=== PATIENT | female | born 1970 | race Caucasian/White ===

== ENCOUNTER 2018-09-12 14:05 | Inpatient (IN) | payer OTHER ==
[~2018-09-12] VITALS: Ht 162.6 cm; Wt 151.5 kg
--- OUTSIDE RECORDS SUMMARY | 2018-09-12 14:08 | XMS REPORT ---
Author Author [facility] Address Unknown Phone Unavailable Care Team Providers Care Rig Superintendent Name Role Phone Gilson AVILA Unavailable Unavailable Problems This patient has no known problems. Allergies, Adverse Reactions, Alerts This patient has no known allergies or adverse reactions. Medications This patient has no known medications. Results Test Description Test Time Test Comments Text Results Atomic Results Result Comments CT ABDOMEN/PELVIS W [place] [address] Patient Name: EMILY NASCIMENTO MR #: [id number] : 1970 Age/Sex: 47/F Req #: [id number] Adm Physician: Ordered by: CLAUDIO AVILA MD Report #: [id number] Location: ER Room/Bed: Procedure: [id number] CT/CT ABDOMEN/PELVIS W Exam Date: Exam Time: REPORT STATUS: Signed PROCEDURE: CT ABDOMEN AND PELVIS WITH CONTRAST TECHNIQUE: The abdomen and pelvis were scanned utilizing a multidetector helical scanner from the diaphragm to the lesser trochanter after the IV administration of 100 cc of Isovue 370 and the oral administration of water. Coronal and sagittal multiplanar reformations were obtained. COMPARISON: [facility], CT, CT ABDOMEN T PELVIS W/WO CONTRAST, 08/04/2007, 19:07. INDICATIONS: UTI, RIGHT SIDE ABDOMEN PAIN. FINDINGS: LOWER THORAX: Unremarkable. HEPATOBILIARY: No focal hepatic lesions. No biliary ductal dilatation. Cholecystectomy clips. SPLEEN: Stable mild splenomegaly, measuring 14 cm in AP diameter PANCREAS: No focal masses or ductal dilatation. ADRENALS: No adrenal nodules. KIDNEYS/URETERS: No hydronephrosis, stones, or solid mass lesions. PELVIC ORGANS/BLADDER: Bladder is unremarkable. No focal lesions. No surrounding inflammatory changes. Uterus is absent. No adnexal masses. PERITONEUM / RETROPERITONEUM: No free air or fluid. LYMPH NODES: No lymphadenopathy. VESSELS: Minimal atherosclerotic calcification of the distal abdominal aorta. GI TRACT: No bowel dilation or evidence of obstruction. The appendix is well identified and normal in caliber. No pericolonic inflammatory changes. A single diverticulum is noted in the proximal sigmoid colon (series 2, image 77 and coronal image 57), without diverticulitis. BONES AND SOFT TISSUES: Degenerative disc changes, predominantly at L4-L5. Soft tissues are grossly unremarkable. IMPRESSION: 1. no acute abdominopelvic abnormalities. Specifically, no abnormal findings in the right abdomen to explain the patient's pain. 2. Stable mild splenomegaly. Sue Norman M.D. Dictated by: Sue Norman M.D. on 05/16/2017 at 15:16 Electronically approved by: Sue Norman M.D. on 05/16/2017 at 15:16 Dictated By: SUE NORMAN MD [id number] Transcribed By: CJ on 05/16/17 1516 COPY TO: CLAUDIO AVILA MD
[2018-09-12 15:25] LABS: BASOPHILS % 0.2 % (0.0-1.0); EOSINOPHILS % 0.1 % (0.0-6.0); HEMATOCRIT 31.7 % (34.2-44.1); HEMOGLOBIN 10.5 g/dL (12.0-16.0); LYMPHOCYTES # (AUTO) 0.7 (1.0-3.2); LYMPHOCYTES % 7.7 % (18.0-39.1); MEAN CORPUSCULAR HEMOGLOBIN 29.6 pg (28-32); MEAN CORPUSCULAR HGB CONC 33.1 g/dL (31-35); MEAN CORPUSCULAR VOLUME 89.3 fL (81-99); MONOCYTES # (AUTO) 0.5 (0.2-0.8); MONOCYTES % 5.3 % (4.4-11.3); NEUTROPHILS # (AUTO) 7.8 (2.1-6.9); NEUTROPHILS % 84.1 % (38.7-80.0); PLATELET COUNT 193 x10e3/uL (140-360); RED BLOOD COUNT 3.55 x10e6/uL (3.6-5.1)
[2018-09-12 15:38] LABS: ALBUMIN 3.2 g/dL (3.5-5.0); ALBUMIN/GLOBULIN RATIO 0.7 (0.8-2.0); ANION GAP 14.6 mmol/L (8-16); CALCIUM 9.8 mg/dL (8.4-10.2); CREATININE, SERUM 0.99 mg/dL (0.57-1.11); POTASSIUM 3.6 mmol/L (3.5-5.1)
--- NOTE | 2018-09-12 15:51 | Diagnostic Imaging Report ---
EXAMINATION: CHEST 2 VIEWS INDICATION: Shortness of breath ^ORDER PLACED BY ^[id number] ^1530 ^Y COMPARISON: None FINDINGS: PA and lateral views TUBES and LINES: None. LUNGS: Lung volumes are low. There is left lower lobe infiltrate. Right lung appears clear PLEURA: Small left pleural effusion. No pneumothorax. HEART AND MEDIASTINUM: The cardiomediastinal silhouette is unremarkable.. BONES AND SOFT TISSUES: There are degenerative changes of the spine. No focal osseous lesions. Soft tissues are unremarkable. UPPER ABDOMEN: No free air under the diaphragm. IMPRESSION: Left lower lobe infiltrate suggestive of pneumonia in the appropriate clinical setting. Signed by: Dr. Chivo Carson MD on 09/12/2018 3:48 PM
[2018-09-12 15:58] LABS: STREPTOCOCCUS GRP A ANTIGEN NEGATIVE (NEGATIVE)
[2018-09-12 16:02] LABS: INFLUENZAE A&B ANTIGEN (RAPID) POSITIVE FLU A (NEGATIVE)
[2018-09-12] MEDS ORDERED: ALBUTEROL SULF 0.083% NEB SOLN 3 ML NEB NEB STA (16:34)
[2018-09-12] MEDS ORDERED: SODIUM CHLORIDE 0.9% 1000ML 1,000 ML IV STA (16:35)
[2018-09-12] MEDS ORDERED: IPRATROPIUM BROMIDE 0.02% 2.5 ML NEB NEB ONE (16:45)
[2018-09-12 16:47] LABS: INR 1.01; PROTHROMBIN TIME 14.2 seconds (11.9-14.5)
[2018-09-12 16:48] LABS: PARTIAL THROMBOPLASTIN TIME 49.5 seconds (23.8-35.5)
[2018-09-12] MEDS: LEVOFLOXACIN 750MG/D5W 150ML 150 ML IV SCH (17:00)
[2018-09-12 17:01] LABS: CREATINE KINASE MB 0.5 ng/mL (0-5.0)
--- NOTE | 2018-09-12 17:30 | NUR ---
URINE SPECIMEN NEEDED, PT AWARE AND UNABLE TO VOID AT THIS TIME. IVF'S INFUSING ORDERED. PT INSTRUCTED TO CALL FOR ANY NEEDS, ASSISTANCE.
[2018-09-12] MEDS: SODIUM CHLORIDE 0.9% 1000ML 1,000 ML IV SCH (17:45)
[2018-09-12] MEDS: OSELTAMIVIR PHOSPHATE 75 MG CAP PO SCH (17:45)
--- NOTE | 2018-09-12 18:25 | NUR ---
PT MEDICATED FOR FEVER ORDERED. PT AWARE OF ADMISSION TO HOSPITAL, PENDING ROOM ASSIGNMENT AT THIS TIME.
[2018-09-12] MEDS ORDERED: HYDROMORPHONE 2MG/ML 2 MG/ML ML IV ONE (18:30)
[2018-09-12] MEDS ORDERED: KETOROLAC TROMETHAMINE 30 MG/ML VIAL IV ONE (18:30)
[2018-09-12] MEDS ORDERED: ALBUTEROL SULF 0.083% NEB SOLN 3 ML NEB NEB SCH (19:00)
[2018-09-12] MEDS ORDERED: IPRATROPIUM BROMIDE 0.02% 2.5 ML NEB NEB SCH (19:00)
--- NOTE | 2018-09-12 19:21 | NUR ---
BESIDE REPORT GIVEN TO MELANIA GONGORA AIR DIRECTOR NURSE. PT AWARE ROOM ASSIGNMENT STILL PENDING AT THIS TIME.
[2018-09-12] MEDS: ALBUTEROL/IPRATROPIUM 3 ML NEB INH SCH ×2 (20:10→23:35)
--- NOTE | 2018-09-12 20:30 | NUR ---
report received from Emergency Room Nurse.
--- NOTE | 2018-09-12 21:40 | NUR ---
Patient came from Emergency Room via stretcher. Alert and Oriented. Assessment done.
[2018-09-12 22:00] VITALS: BP 158/77
--- NOTE | 2018-09-12 22:57 | NUR ---
Patient latest temp 100.[address] Desmond wolf no answer.
[2018-09-12 23:21] LABS: BILIRUBIN,URINE 1+ (NEGATIVE); CLARITY,URINE CLOUDY (CLEAR); COLOR,URINE YELLOW (YELLOW); KETONES,URINE 1+ (NEGATIVE); LEUKOCYTE ESTERASE ,URINE NEGATIVE (NEGATIVE); NITRITE,URINE NEGATIVE (NEGATIVE); PROTEIN,URINE DIPSTICK 2+ (NEGATIVE); URINE UROBILINOGEN 0.2 mg/dL (0.2 - 1)
[2018-09-12 23:22] LABS: BACTERIA,URINE MANY /HPF; EPITHELIAL CELLS,URINE FEW /LPF; MUCUS,URINE MODERATE (RARE)
[2018-09-13] VITALS (8 sets, daily range): BP systolic 126–139; BP diastolic 62–78
[2018-09-13] MEDS: SODIUM CHLORIDE 0.9% 1000ML 1,000 ML IV SCH ×2 (00:01→10:33)
--- NOTE | 2018-09-13 01:29 | NUR ---
Paged and talked to MD. New order received.
[2018-09-13] MEDS ORDERED: ACETAMINOPHEN 325 MG TAB PO PRN (01:30)
[2018-09-13] MEDS: IBUPROFEN 200 MG TAB PO PRN ×3 (01:52→21:53)
[2018-09-13] MEDS: ALBUTEROL/IPRATROPIUM 3 ML NEB INH SCH ×6 (02:59→23:12)
[2018-09-13 05:37] LABS: BASOPHILS % 0.2 % (0.0-1.0); HEMATOCRIT 28.4 % (34.2-44.1); HEMOGLOBIN 9.3 g/dL (12.0-16.0); LYMPHOCYTES # (AUTO) 0.8 (1.0-3.2); LYMPHOCYTES % 9.4 % (18.0-39.1); MEAN CORPUSCULAR HEMOGLOBIN 29.2 pg (28-32); MEAN CORPUSCULAR HGB CONC 32.7 g/dL (31-35); MEAN CORPUSCULAR VOLUME 89.3 fL (81-99); MONOCYTES # (AUTO) 0.5 (0.2-0.8); MONOCYTES % 6.2 % (4.4-11.3); NEUTROPHILS # (AUTO) 6.7 (2.1-6.9); NEUTROPHILS % 83.5 % (38.7-80.0); PLATELET COUNT 182 x10e3/uL (140-360); RED BLOOD COUNT 3.18 x10e6/uL (3.6-5.1); RED CELL DISTRIBUTION WIDTH 13.1 % (11.7-14.4)
[2018-09-13 06:09] LABS: ALANINE AMINOTRANSFERASE 11 IU/L (0-55); ALBUMIN 2.6 g/dL (3.5-5.0); ALBUMIN/GLOBULIN RATIO 0.7 (0.8-2.0); ALKALINE PHOSPHATASE 57 IU/L (40-150); ANION GAP 15.3 mmol/L (8-16); BLOOD UREA NITROGEN 14 mg/dL (7-26); BUN/CREATININE RATIO 17 (6-25); CALCIUM 8.6 mg/dL (8.4-10.2); CARBON DIOXIDE 19 mmol/L (22-29); CHLORIDE 99 mmol/L (98-107); CREATININE, SERUM 0.81 mg/dL (0.57-1.11); EST GLOMERULAR FILTRATION RATE > 60 ML/MIN (60-); GLUCOSE 189 mg/dL (74-118); POTASSIUM 3.3 mmol/L (3.5-5.1); SODIUM 130 mmol/L (136-145)
[2018-09-13 06:27] LABS: CREATINE KINASE MB 0.3 ng/mL (0-5.0)
--- NOTE | 2018-09-13 07:33 | NUR ---
Patient resting in bed, denies any pain or SOB, not in any distress, she Refused Bed Alarm, explained and educated her about safety, she said its OK for me, call light in reach, encouraged her to use for assistance
[2018-09-13] MEDS: LEVOFLOXACIN 750MG/D5W 150ML 150 ML IV SCH (08:32)
[2018-09-13] MEDS: OSELTAMIVIR PHOSPHATE 75 MG CAP PO SCH ×2 (08:33→17:30)
[2018-09-13] MEDS ORDERED: MOBIC15 MG PO (09:42)
[2018-09-13] MEDS ORDERED: BENADRYL25 M1 PO (09:42)
[2018-09-13] MEDS ORDERED: CYCLOBENZAPRINE10 MG PO (09:42)
[2018-09-13] MEDS ORDERED: CLONAZEPAM1 MG PO (09:42)
[2018-09-13] MEDS ORDERED: LANTUS 3ML100 UNITS/ SC (09:42)
[2018-09-13] MEDS ORDERED: LISINOPRIL10 MG PO (09:42)
[2018-09-13] MEDS ORDERED: SINGULAIR10 MG PO (09:42)
[2018-09-13] MEDS ORDERED: ATORVASTATIN CA20 MG PO (09:42)
[2018-09-13] MEDS ORDERED: METFORMIN HCL500 MG PO (09:42)
[2018-09-13] MEDS ORDERED: PRAZOSIN HCL1 MG PO (09:42)
[2018-09-13] MEDS ORDERED: SPIRONOLACTONE50 MG PO (09:42)
[2018-09-13] MEDS ORDERED: OMEPRAZOLE40 MG PO (09:42)
[2018-09-13] MEDS ORDERED: CYMBALTA20 MG PO (09:42)
--- NOTE | 2018-09-13 10:03 | NUR ---
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
[2018-09-13] MEDS ORDERED: POTASSIUM CHLORIDE 20 MEQ TAB CR PO ONE (13:30)
[2018-09-13 13:37] LABS: CREATINE KINASE MB 0.5 ng/mL (0-5.0)
[2018-09-13] MEDS: CYCLOBENZAPRINE HCL 10 MG TAB PO SCH ×2 (14:25→20:58)
[2018-09-13] MEDS: GUAIFENESIN 200 MG/10 ML UDC PO PRN ×2 (14:45→23:01)
--- NOTE | 2018-09-13 16:17 | NUR ---
Blood culture result paged Dr Desmond Stinson, awaiting call back for new orders, patient is on IV fluids, PRN Mortin po given for elevated temp, not in any distress, keep monitoring
--- NOTE | 2018-09-13 17:24 | NUR ---
Notified Dr Desmond Stinson regarding blood culture result, new orders recvd.
[2018-09-13] MEDS: CLONAZEPAM 1 MG TAB PO SCH (17:30)
[2018-09-13] MEDS: METFORMIN HCL 500 MG TAB PO SCH (17:30)
[2018-09-13] MEDS: VANCOMYCIN 1GM/NS 250 ML 250 ML IV SCH (18:00)
--- NOTE | 2018-09-13 19:18 | NUR ---
Received Patient laying on the bed. Alert and responsive.
[2018-09-13] MEDS: INSULIN DETEMIR 100 UNIT/ML PEN SQ SCH (20:57)
[2018-09-13] MEDS: ATORVASTATIN 20 MG TAB PO SCH (20:58)
[2018-09-13] MEDS: DIPHENHYDRAMINE HCL 25 MG CAP PO SCH (20:58)
[2018-09-13] MEDS: PRAZOSIN HCL 1 MG CAP PO SCH (20:58)
--- NOTE | 2018-09-13 21:50 | NUR ---
Patient complaint of nausea. Paged Dr. Stinson no answer. Patient was assisted to comfortable position.
[2018-09-14] VITALS (9 sets, daily range): BP systolic 102–137; BP diastolic 59–69
--- NOTE | 2018-09-14 00:12 | NUR ---
Patient relieved from nausea. IV reinserted.
[2018-09-14] MEDS: SODIUM CHLORIDE 0.9% 1000ML 1,000 ML IV SCH ×3 (01:06→16:30)
[2018-09-14] MEDS: ALBUTEROL/IPRATROPIUM 3 ML NEB INH SCH ×6 (02:58→23:10)
[2018-09-14] MEDS: VANCOMYCIN 1GM/NS 250 ML 250 ML IV SCH ×2 (05:15→18:18)
[2018-09-14] MEDS: IBUPROFEN 200 MG TAB PO PRN ×3 (07:24→23:57)
--- NOTE | 2018-09-14 07:25 | NUR ---
RECEIVED PATIENT RESTING IN BED. NO ACUTE DISTRESS NOTED. PAIN AT A TOLERABLE LEVEL AT THIS TIME. CALL LIGHT WITHIN REACH. BED IN THE LOWEST POSITION.
--- NOTE | 2018-09-14 07:26 | NUR ---
Report given to oncoming nurse.
[2018-09-14] MEDS: METFORMIN HCL 500 MG TAB PO SCH ×2 (09:37→16:53)
[2018-09-14] MEDS: PANTOPRAZOLE SOD 40 MG TABEC PO SCH (09:37)
[2018-09-14] MEDS: LEVOFLOXACIN 750MG/D5W 150ML 150 ML IV SCH (09:37)
[2018-09-14] MEDS: DULOXETINE HCL 20 MG DELAYED RELEASE PO SCH (09:37)
[2018-09-14] MEDS: CYCLOBENZAPRINE HCL 10 MG TAB PO SCH ×3 (09:38→21:00)
[2018-09-14] MEDS: OSELTAMIVIR PHOSPHATE 75 MG CAP PO SCH ×2 (09:38→16:53)
[2018-09-14] MEDS: MONTELUKAST SODIUM 10 MG TAB PO SCH (09:38)
[2018-09-14] MEDS: LISINOPRIL 20 MG TAB PO SCH (09:38)
[2018-09-14] MEDS: CLONAZEPAM 1 MG TAB PO SCH ×2 (09:38→16:53)
--- NOTE | 2018-09-14 12:00 | NUR ---
CALLED DR. ARROYO'S OFFICE TO NOTIFY HIM OF PATIENT'S BG FOR TODAY BEING ELEVATE. ANSWERING SERVICE WILL PAGE .
[2018-09-14] MEDS ORDERED: DEXTROSE 50% SYRINGE 50 ML IV PRN (12:45)
[2018-09-14] MEDS: INSULIN LISPRO 100 UNIT/1 ML 3ML VIAL SQ SCH ×3 (13:05→21:00)
--- NOTE | 2018-09-14 19:29 | NUR ---
REPORT GIVEN TO ONCOMING NURSE. PATIENT IS RESTING IN BED. NO ACUTE DISTRESS NOTED. CALL LIGHT WITHIN REACH. BED IN THE LOWEST POSITION.
--- NOTE | 2018-09-14 20:00 | NUR ---
PT IN BED, ABD BREATHING NOTICEABLE, VS STABLE, SLIGHT TEMP NOTED, O2 2L NC AT BEDSIDE PRN, TELE WITH CONT PULSE OX ON PT, IV INTACT AND INFUSING, CALL LIGHT IN REACH, NO DISTRESS NOTED,
[2018-09-14] MEDS: DIPHENHYDRAMINE HCL 25 MG CAP PO SCH (21:00)
[2018-09-14] MEDS: PRAZOSIN HCL 1 MG CAP PO SCH (21:00)
[2018-09-14] MEDS: INSULIN DETEMIR 100 UNIT/ML PEN SQ SCH (21:00)
[2018-09-14] MEDS: ATORVASTATIN 20 MG TAB PO SCH (21:00)
[2018-09-15] VITALS (8 sets, daily range): BP systolic 112–157; BP diastolic 51–88
[2018-09-15] MEDS: ALBUTEROL/IPRATROPIUM 3 ML NEB INH SCH ×6 (03:15→23:30)
[2018-09-15] MEDS: VANCOMYCIN 1GM/NS 250 ML 250 ML IV SCH ×2 (06:00→18:00)
--- NOTE | 2018-09-15 06:18 | NUR ---
pt down and back from xray, vs stable, no distress noted, pt in bed with call light in reach
--- NOTE | 2018-09-15 06:27 | Diagnostic Imaging Report ---
CHEST 2 VIEWS, Technique: CHEST 2 VIEWS Comparison: 09/12/2018 Clinical history: Pneumonia DISCUSSION: Stable prominent cardiomediastinal silhouette. Increased left lower hemithorax opacity. Small right pleural effusion. IMPRESSION: Increased left lower hemithorax opacity which may reflect a combination of atelectasis/pneumonia and pleural fluid. Signed by: Dr Betzaida Gonzalez MD on 09/15/2018 6:23 AM
--- NOTE | 2018-09-15 07:12 | NUR ---
RECEIVED PATIENT RESTING IN BED. NO ACUTE DISTRESS NOTED. CALL LIGHT WITHIN REACH. BED IN THE LOWEST POSITION.
--- NOTE | 2018-09-15 08:24 | Consultation ---
DATE OF CONSULTATION: September 14, 2018 PULMONARY CONSULTATION Patient of Dr. Shayne Stinson, Dr. Vidal Cruz. 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 History of rheumatoid arthritis. Patient had received the flu vaccine. was stopped approximately a month ago. ALLERGIES: ALLERGIC TO CLEOCIN, TYLENOL, AND PENICILLIN. HOME MEDICATIONS: In addition to Plaquenil included Mobic, Aldactone, Lipitor, clonazepam, cyclobenzaprine, Benadryl, Cymbalta, insulin, lisinopril, metformin, montelukast, omeprazole, prazosin. 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 VITAL SIGNS: Temperature 100.9, pulse 114, respirations 18, blood pressure 137/60. HEENT: Head: Normocephalic, atraumatic. Eyes: Extraocular movements intact. LUNGS: Rales, left base. HEART: Regular rhythm. ABDOMEN: Nontender. EXTREMITIES: Not edematous. IMPRESSION: Influenza pneumonia. PLAN: Consider reducing antibiotics. Check sputum studies. Coag-negative staph in the blood presumed contaminant. Follow up chest x-ray in a.m., there is a suggestion of pleuritic pain. Thank you for this kind referral. Job#: [id number]
[2018-09-15] MEDS ORDERED: HYDROXYCHLOROQUINE SULFATE 200 MG TAB PO SCH (09:00)
[2018-09-15] MEDS: METFORMIN HCL 500 MG TAB PO SCH ×2 (09:03→17:08)
[2018-09-15] MEDS: LEVOFLOXACIN 750MG/D5W 150ML 150 ML IV SCH (09:03)
[2018-09-15] MEDS: DULOXETINE HCL 20 MG DELAYED RELEASE PO SCH (09:03)
[2018-09-15] MEDS: PANTOPRAZOLE SOD 40 MG TABEC PO SCH (09:03)
[2018-09-15] MEDS: LISINOPRIL 20 MG TAB PO SCH (09:04)
[2018-09-15] MEDS: OSELTAMIVIR PHOSPHATE 75 MG CAP PO SCH ×2 (09:04→17:08)
[2018-09-15] MEDS: CYCLOBENZAPRINE HCL 10 MG TAB PO SCH ×3 (09:04→20:31)
[2018-09-15] MEDS: CLONAZEPAM 1 MG TAB PO SCH ×2 (09:04→17:08)
[2018-09-15] MEDS: MONTELUKAST SODIUM 10 MG TAB PO SCH (09:04)
[2018-09-15] MEDS: PROMETHAZINE/CODEINE 5 ML UDC PO PRN ×2 (09:20→20:30)
[2018-09-15] MEDS: INSULIN LISPRO 100 UNIT/1 ML 3ML VIAL SQ SCH ×4 (09:21→20:20)
[2018-09-15] MEDS: IBUPROFEN 200 MG TAB PO PRN ×2 (12:00→20:30)
--- NOTE | 2018-09-15 18:54 | Diagnostic Imaging Report ---
Exam: Ultrasound of chest Clinical history: Pleural effusion. Technique: Using a curved array transducer, real-time imaging of the bilateral thorax was performed with images saved in sagittal and transverse planes. Discussion: There is no pleural effusion bilaterally. Impression: No pleural effusion. Signed by: Dr. Esme Mancilla M.D. on 09/15/2018 6:51 PM
--- NOTE | 2018-09-15 19:32 | NUR ---
REPORT GIVEN TO ONCOMING NURSE. PATIENT IS RESTING IN BED. NO S/S OF DISTRESS NOTED. CALL LIGHT WITHIN REACH. BED IN THE LOWEST POSITION.
[2018-09-15] MEDS: INSULIN DETEMIR 100 UNIT/ML PEN SQ SCH (20:20)
[2018-09-15] MEDS: SODIUM CHLORIDE 0.9% 1000ML 1,000 ML IV SCH ×2 (20:31→20:32)
[2018-09-15] MEDS: DIPHENHYDRAMINE HCL 25 MG CAP PO SCH (20:31)
[2018-09-15] MEDS: ATORVASTATIN 20 MG TAB PO SCH (20:31)
[2018-09-15] MEDS: PRAZOSIN HCL 1 MG CAP PO SCH (20:32)
[2018-09-16] VITALS: BP 96/65
[2018-09-16] MEDS: ALBUTEROL/IPRATROPIUM 3 ML NEB INH SCH ×6 (03:15→23:10)
[2018-09-16 04:00] VITALS: BP 130/65
[2018-09-16] MEDS: VANCOMYCIN 1GM/NS 250 ML 250 ML IV SCH ×2 (06:37→17:41)
[2018-09-16] MEDS: INSULIN LISPRO 100 UNIT/1 ML 3ML VIAL SQ SCH ×4 (07:30→20:38)
[2018-09-16 08:00] VITALS: BP 130/59
[2018-09-16] MEDS: PROMETHAZINE/CODEINE 5 ML UDC PO PRN ×2 (08:53→20:05)
[2018-09-16] MEDS: DULOXETINE HCL 20 MG DELAYED RELEASE PO SCH (08:59)
[2018-09-16] MEDS: PANTOPRAZOLE SOD 40 MG TABEC PO SCH (08:59)
[2018-09-16] MEDS: METFORMIN HCL 500 MG TAB PO SCH ×2 (08:59→17:41)
[2018-09-16] MEDS: LEVOFLOXACIN 750MG/D5W 150ML 150 ML IV SCH (08:59)
[2018-09-16] MEDS: CLONAZEPAM 1 MG TAB PO SCH ×2 (09:00→17:41)
[2018-09-16] MEDS: OSELTAMIVIR PHOSPHATE 75 MG CAP PO SCH ×2 (09:00→17:41)
[2018-09-16] MEDS: MONTELUKAST SODIUM 10 MG TAB PO SCH (09:00)
[2018-09-16] MEDS: LISINOPRIL 20 MG TAB PO SCH (09:00)
[2018-09-16] MEDS: CYCLOBENZAPRINE HCL 10 MG TAB PO SCH ×3 (09:00→20:37)
--- NOTE | 2018-09-16 11:56 | Diagnostic Imaging Report ---
EXAMINATION: CT scan of the chest without contrast. TECHNIQUE: Spiral CT images of the chest were performed from the lung apices to the level of the adrenal glands without IV or oral contrast material. Coronal and sagittal reformatted images were obtained. Dose reduction techniques were utilized which includes automated exposure control, adjustment of the MAS and/or KVP according to the patient's size and standardized low-dose protocol. DLP: 610.22 mGy-cm COMPARISON: Chest x-ray dated 09/15/2018 CLINICAL HISTORY:Asthma, shortness of breath with chest pain and cough. DISCUSSION: LINES/TUBES: None. LUNGS AND AIRWAYS: Extensive left lower lobe consolidation. PLEURA: Trace left pleural effusion. HEART AND MEDIASTINUM: The thyroid gland is normal. The heart and pericardium are within normal limits. Calcified right paratracheal and hilar granulomas. LYMPH NODES: There is no mediastinal, hilar or axillary lymphadenopathy. ABDOMEN: Clips in the gallbladder fossa. Limited views of the liver and spleen reveal no abnormality. BONES AND SOFT TISSUES: No acute bony abnormalities. Mild degenerative spurring of the spine. IMPRESSION: Left lower lobe consolidation with a trace amount left pleural effusion. Signed by: Dr. Álvaro Barrett DO on 09/16/2018 11:52 AM
[2018-09-16 12:00] VITALS: BP 148/68
[2018-09-16] MEDS: IBUPROFEN 200 MG TAB PO PRN (13:14)
[2018-09-16 16:00] VITALS: BP 137/68
--- NOTE | 2018-09-16 18:00 | NUR ---
Dr. Stinson here to see pt and received orders to remove pt from isolation on 09/17/18.
--- NOTE | 2018-09-16 19:00 | NUR ---
Completed bedside rounds with morning nurse. Pt alert, lying in bed 60 degrees. Denies pain at this time. No acute distress noted. Call denton within reach.
[2018-09-16 20:00] VITALS: BP 110/65
[2018-09-16] MEDS: ATORVASTATIN 20 MG TAB PO SCH (20:37)
[2018-09-16] MEDS: DIPHENHYDRAMINE HCL 25 MG CAP PO SCH (20:37)
[2018-09-16] MEDS: SODIUM CHLORIDE 0.9% 1000ML 1,000 ML IV SCH (20:38)
[2018-09-16] MEDS: PRAZOSIN HCL 1 MG CAP PO SCH (20:38)
[2018-09-16] MEDS: INSULIN DETEMIR 100 UNIT/ML PEN SQ SCH (20:47)
[2018-09-17] VITALS (7 sets, daily range): BP systolic 104–144; BP diastolic 50–88
[2018-09-17] MEDS: ALBUTEROL/IPRATROPIUM 3 ML NEB INH SCH ×6 (02:15→23:32)
[2018-09-17] MEDS: PROMETHAZINE/CODEINE 5 ML UDC PO PRN ×4 (03:04→22:25)
[2018-09-17] MEDS: IBUPROFEN 200 MG TAB PO PRN ×4 (03:04→22:50)
[2018-09-17] MEDS: VANCOMYCIN 1GM/NS 250 ML 250 ML IV SCH (05:40)
[2018-09-17 05:45] LABS: BASOPHILS % 0.4 % (0.0-1.0); EOSINOPHILS # (AUTO) 0.1 (0.0-0.4); EOSINOPHILS % 0.9 % (0.0-6.0); HEMATOCRIT 24.2 % (34.2-44.1); HEMOGLOBIN 7.8 g/dL (12.0-16.0); LYMPHOCYTES # (AUTO) 0.9 (1.0-3.2); LYMPHOCYTES % 9.9 % (18.0-39.1); MEAN CORPUSCULAR HEMOGLOBIN 29.4 pg (28-32); MEAN CORPUSCULAR HGB CONC 32.2 g/dL (31-35); MEAN CORPUSCULAR VOLUME 91.3 fL (81-99); MONOCYTES # (AUTO) 0.6 (0.2-0.8); NEUTROPHILS # (AUTO) 7.2 (2.1-6.9); NEUTROPHILS % 78.3 % (38.7-80.0); PLATELET COUNT 243 x10e3/uL (140-360); RED BLOOD COUNT 2.65 x10e6/uL (3.6-5.1); RED CELL DISTRIBUTION WIDTH 13.3 % (11.7-14.4)
--- NOTE | 2018-09-17 06:00 | NUR ---
Called Dr. Cherie Stinson answering service for call back regarding abnormal lab, Hgb 7.3.
[2018-09-17 06:11] LABS: ANION GAP 12.2 mmol/L (8-16); BLOOD UREA NITROGEN 5 mg/dL (7-26); BUN/CREATININE RATIO 7 (6-25); CALCIUM 8.6 mg/dL (8.4-10.2); CARBON DIOXIDE 21 mmol/L (22-29); CHLORIDE 103 mmol/L (98-107); CREATININE, SERUM 0.73 mg/dL (0.57-1.11); EST GLOMERULAR FILTRATION RATE > 60 ML/MIN (60-); GLUCOSE 134 mg/dL (74-118); POTASSIUM 3.2 mmol/L (3.5-5.1); SODIUM 133 mmol/L (136-145)
[2018-09-17] MEDS: INSULIN LISPRO 100 UNIT/1 ML 3ML VIAL SQ SCH ×5 (08:35→21:00)
[2018-09-17] MEDS: PANTOPRAZOLE SOD 40 MG TABEC PO SCH (08:36)
[2018-09-17] MEDS: METFORMIN HCL 500 MG TAB PO SCH ×2 (08:36→17:16)
[2018-09-17] MEDS: CLONAZEPAM 1 MG TAB PO SCH ×2 (08:36→17:16)
[2018-09-17] MEDS: CYCLOBENZAPRINE HCL 10 MG TAB PO SCH ×3 (08:36→21:00)
[2018-09-17] MEDS: MONTELUKAST SODIUM 10 MG TAB PO SCH (08:36)
[2018-09-17] MEDS: LEVOFLOXACIN 750MG/D5W 150ML 150 ML IV SCH (08:36)
[2018-09-17] MEDS: DULOXETINE HCL 20 MG DELAYED RELEASE PO SCH (08:36)
[2018-09-17] MEDS: OSELTAMIVIR PHOSPHATE 75 MG CAP PO SCH (08:36)
[2018-09-17] MEDS: LISINOPRIL 20 MG TAB PO SCH (09:00)
[2018-09-17 10:25] LABS: EOSINOPHILS % (MANUAL) 1 % (0-7); LYMPHOCYTES % (MANUAL) 15 % (19-48); METAMYELOCYTES % (MANUAL) 1 % (0-0); MONOCYTES % (MANUAL) 5 % (3.4-9.0); NEUTROPHILS % (MANUAL) 78 % (40-74)
[2018-09-17 10:26] LABS: ANISOCYTOSIS SLIGHT; HYPOCHROMASIA SLIGHT; PLATELET ESTIMATE ADEQUATE; PLATELET MORPHOLOGY COMMENT NORMAL; RBC MORPHOLOGY COMMENT NORMAL
--- NOTE | 2018-09-17 11:00 | NUR ---
Dr. Stinson called back and made him aware of abnormal labs. Received orders to consult Dr. Padgett for anemia and type and screen to transfuse 2 units PRBC. Received orders to give KCL 20meq PO x1 dose.
[2018-09-17] MEDS ORDERED: SODIUM CHLORIDE 0.9% 250ML 250 ML IV ONE (11:30)
[2018-09-17] MEDS ORDERED: POTASSIUM CHLORIDE 20 MEQ TAB CR PO NR (11:45)
[2018-09-17] MEDS ORDERED: SODIUM CHLORIDE 0.9% 250ML 250 ML ONE ×2 (16:04→22:44)
--- NOTE | 2018-09-17 16:22 | NUR ---
Nutrition Screen Note RD Recommendation for Physician: -Continue ADA diet as ordered Plan of Care: RD following, monitoring for tolerance and adequacy Nutrition reason for involvement: LOS Primary Diagnose(s): influenza PNA PMH: No H&P in chart Ht: 64in Wt: 333.13lb BMI: 57.2kg/m2 IBW: 130lb RD Assessment: (09/17) Chart reviewed. Labs and meds reviewed. 48yo F, who is admitted for influenza PNA. Visited pt in the room. Pt reports good appetite with ~50-100% recorded PO intake. No GI complains noted. LBM 09/16, loose stool possibly due to meds. Pt denies any chewing or swallowing difficulty. No recent unintentional weight loss reported. Will continue to monitor and follow. Current Diet: ADA diet Malnutrition Evaluation (09/17) The patient does not meet criteria for a specified degree of malnutrition at this time. Will re-evaluate at follow-up as appropriate. Diet Education Needs Assessment: Diet education not indicated. Nutrition Care Level: low Signed: Jayda Rogers, MS, RD, LD
--- NOTE | 2018-09-17 19:05 | NUR ---
Completed bedside rounds with morning nurse and Dr. Padgett. Dr. Padgett explained his upcoming medical plans. Pt alert, lying in bed 60 degrees. No acute distress noted. Call denton within reach.
[2018-09-17] MEDS: PRAZOSIN HCL 1 MG CAP PO SCH (21:00)
[2018-09-17] MEDS: INSULIN DETEMIR 100 UNIT/ML PEN SQ SCH (21:00)
[2018-09-17] MEDS: DIPHENHYDRAMINE HCL 25 MG CAP PO SCH (21:00)
[2018-09-17] MEDS: ATORVASTATIN 20 MG TAB PO SCH (21:00)
[2018-09-18] VITALS (9 sets, daily range): BP systolic 96–144; BP diastolic 52–75
--- NOTE | 2018-09-18 01:36 | NUR ---
Blood transfusion x2 completed. No blood fusion reactions noted. Temp 100.5, fluctuates x2 days in hospital. Pt lying in bed right side quiet with eyes closed.
[2018-09-18] MEDS: ALBUTEROL/IPRATROPIUM 3 ML NEB INH SCH ×6 (03:15→23:00)
[2018-09-18 05:28] LABS: BASOPHILS % 0.3 % (0.0-1.0); EOSINOPHILS # (AUTO) 0.1 (0.0-0.4); EOSINOPHILS % 1.4 % (0.0-6.0); HEMATOCRIT 25.9 % (34.2-44.1); HEMOGLOBIN 8.4 g/dL (12.0-16.0); LYMPHOCYTES % 10.7 % (18.0-39.1); MEAN CORPUSCULAR HEMOGLOBIN 28.8 pg (28-32); MEAN CORPUSCULAR HGB CONC 32.4 g/dL (31-35); MEAN CORPUSCULAR VOLUME 88.7 fL (81-99); MONOCYTES # (AUTO) 0.5 (0.2-0.8); MONOCYTES % 4.8 % (4.4-11.3); NEUTROPHILS # (AUTO) 7.3 (2.1-6.9); NEUTROPHILS % 78.5 % (38.7-80.0); PLATELET COUNT 242 x10e3/uL (140-360); RED BLOOD COUNT 2.92 x10e6/uL (3.6-5.1); RED CELL DISTRIBUTION WIDTH 13.8 % (11.7-14.4)
[2018-09-18] MEDS: VANCOMYCIN 1GM/NS 250 ML 250 ML IV SCH ×2 (06:00→19:21)
[2018-09-18 07:00] LABS: EOSINOPHILS % (MANUAL) 3 % (0-7); LYMPHOCYTES % (MANUAL) 6 % (19-48); MONOCYTES % (MANUAL) 6 % (3.4-9.0); NEUTROPHILS % (MANUAL) 85 % (40-74)
[2018-09-18 07:02] LABS: ANISOCYTOSIS SLIGHT; HYPOCHROMASIA MODERATE; PLATELET ESTIMATE ADEQUATE; PLATELET MORPHOLOGY COMMENT NORMAL; RBC MORPHOLOGY COMMENT NORMAL
--- NOTE | 2018-09-18 07:20 | NUR ---
PATIENT IN BED RESTING WITH NO S/S OF PAIN OR DISCOMFORT. BED IN LOWER POSITION, CALL LIGHT AT REACH.
[2018-09-18] MEDS: INSULIN LISPRO 100 UNIT/1 ML 3ML VIAL SQ SCH ×4 (07:30→20:36)
[2018-09-18] MEDS: METFORMIN HCL 500 MG TAB PO SCH ×2 (08:00→17:39)
[2018-09-18] MEDS: PANTOPRAZOLE SOD 40 MG TABEC PO SCH (08:00)
[2018-09-18] MEDS: PROMETHAZINE/CODEINE 5 ML UDC PO PRN ×2 (08:50→19:21)
[2018-09-18] MEDS: LISINOPRIL 20 MG TAB PO SCH (09:25)
[2018-09-18] MEDS: CYCLOBENZAPRINE HCL 10 MG TAB PO SCH ×3 (09:25→21:00)
[2018-09-18] MEDS: CLONAZEPAM 1 MG TAB PO SCH ×2 (09:25→17:39)
[2018-09-18] MEDS: MONTELUKAST SODIUM 10 MG TAB PO SCH (09:25)
[2018-09-18] MEDS: DULOXETINE HCL 20 MG DELAYED RELEASE PO SCH (09:25)
[2018-09-18] MEDS: LEVOFLOXACIN 750MG/D5W 150ML 150 ML IV SCH (09:25)
--- NOTE | 2018-09-18 11:30 | NUR ---
IN TO SEE PATIENT, NEW ORDER RECEIVED FOR URINE CULTURE. SPECIMEN COLLECTION CUP PROVIDED. PATIENT IN BED WITH CALL LIGHT AT REACH.
[2018-09-18] MEDS ORDERED: FAMOTIDINE 20 MG/2 ML VIAL IV ONE (13:32)
--- NOTE | 2018-09-18 14:45 | NUR ---
PATIENT OFF UNIT FOR A PROCEDURE.
[2018-09-18] MEDS ORDERED: OXYMETAZOLINE HCL 0.05% NAS 1 SPRAY BTL ONE (15:01)
[2018-09-18] MEDS ORDERED: LIDOCAINE HCL 4% 50 ML BTL ONE (15:01)
[2018-09-18] MEDS ORDERED: ACETYLCYSTEINE 200 MG/ML 4ML VIAL ONE (15:01)
[2018-09-18] MEDS ORDERED: LIDOCAINE JELLY 2% 10ML URO-JET ONE (15:01)
[2018-09-18] MEDS ORDERED: MIDAZOLAM HCL 2 MG/2 ML VIAL ONE (15:08)
[2018-09-18] MEDS ORDERED: LIDOCAINE HCL 2% LOCAL INJ 5 ML SDV VIAL INJ ONE (15:28)
[2018-09-18] MEDS ORDERED: PROPOFOL IV EMULSION 10 MG/ML 20 ML VIAL ONE (15:28)
--- NOTE | 2018-09-18 16:19 | NUR ---
REPORT RECEIVED FROM MELANIA MOORE. PATIENT HAD A BRONCHOSCOPY, MUCUS WASHED OUT, WASHING SENT TO PATHOLOGY. BACK TO UNIT AT THIS TIME. ALERT AND VERBALLY RESPONSIVE. DENIED PAIN, IN THE ROOM AT THIS TIME, PATIENT IS ALLOWED TO EAT ONLY AFTER 1714. PATIENT AWARE. BED IN LOWER POSITION, CALL LIGHT AT REACH. V/S 97.0-82-20-144/62 AND 97% ON RA.
--- NOTE | 2018-09-18 20:18 | NUR ---
RECEIVE DPT IN BED AOX3 .PT HAS WHEEZING AND SOB DENIES PAIN CALL LIGHT WITH IN REACH .CONTINUE TO MONITOR
[2018-09-18] MEDS: ATORVASTATIN 20 MG TAB PO SCH (20:38)
[2018-09-18] MEDS: DIPHENHYDRAMINE HCL 25 MG CAP PO SCH (20:38)
[2018-09-18] MEDS: PRAZOSIN HCL 1 MG CAP PO SCH (20:38)
[2018-09-18] MEDS: INSULIN DETEMIR 100 UNIT/ML PEN SQ SCH (21:00)
[2018-09-18] MEDS: IBUPROFEN 200 MG TAB PO PRN (22:00)
[2018-09-19] VITALS (7 sets, daily range): BP systolic 106–169; BP diastolic 53–98
[2018-09-19] MEDS: PROMETHAZINE/CODEINE 5 ML UDC PO PRN ×2 (02:30→17:30)
[2018-09-19] MEDS: ALBUTEROL/IPRATROPIUM 3 ML NEB INH SCH ×6 (02:40→23:55)
[2018-09-19] MEDS: SODIUM CHLORIDE 0.9% 1000ML 1,000 ML IV SCH ×2 (05:30→06:37)
[2018-09-19] MEDS: VANCOMYCIN 1GM/NS 250 ML 250 ML IV SCH ×2 (05:39→18:42)
--- NOTE | 2018-09-19 07:10 | NUR ---
PATIENT IN BED RESTING WITH NO RESPIRATORY DISTRESS. ALL PERSONAL ITEMS CLOSE TO PATIENT. BED IN LOWER POSITION, CALL LIGHT AT REACH.
--- NOTE | 2018-09-19 07:29 | NUR ---
PT HAD COUGH AND TEMPERATURE OFF AND ON DURING THE NIGHT .GIVEN ORDERED MEDS FOR COUGH AND TEM .PT RESTING .GIVEN REPORT TO THE ON COMING NURSE
[2018-09-19] MEDS: INSULIN LISPRO 100 UNIT/1 ML 3ML VIAL SQ SCH ×4 (07:30→20:17)
[2018-09-19] MEDS: PANTOPRAZOLE SOD 40 MG TABEC PO SCH (08:00)
[2018-09-19] MEDS: LEVOFLOXACIN 750MG/D5W 150ML 150 ML IV SCH (09:41)
[2018-09-19] MEDS: DULOXETINE HCL 20 MG DELAYED RELEASE PO SCH (09:41)
[2018-09-19] MEDS: CLONAZEPAM 1 MG TAB PO SCH ×2 (09:41→17:33)
[2018-09-19] MEDS: METFORMIN HCL 500 MG TAB PO SCH ×2 (09:41→17:33)
[2018-09-19] MEDS: CYCLOBENZAPRINE HCL 10 MG TAB PO SCH ×3 (09:41→20:12)
[2018-09-19] MEDS: MONTELUKAST SODIUM 10 MG TAB PO SCH (09:42)
[2018-09-19] MEDS: LISINOPRIL 20 MG TAB PO SCH (09:42)
--- NOTE | 2018-09-19 11:49 | NUR ---
MD IN TO SEE PATIENT, NOTIFIED OF FLUCTUATING TEMPERATURE. NEW ORDER RECEIVED.
[2018-09-19 12:27] LABS: ANION GAP 13.5 mmol/L (8-16); BLOOD UREA NITROGEN 7 mg/dL (7-26); BUN/CREATININE RATIO 9 (6-25); CALCIUM 8.7 mg/dL (8.4-10.2); CARBON DIOXIDE 24 mmol/L (22-29); CHLORIDE 105 mmol/L (98-107); CREATININE, SERUM 0.76 mg/dL (0.57-1.11); EST GLOMERULAR FILTRATION RATE > 60 ML/MIN (60-); GLUCOSE 121 mg/dL (74-118); POTASSIUM 3.5 mmol/L (3.5-5.1); SODIUM 139 mmol/L (136-145)
--- NOTE | 2018-09-19 15:05 | Diagnostic Imaging Report ---
EXAMINATION: CHEST 2 VIEWS INDICATION: Left lower lobe pneumonia. COMPARISON: CT Chest 09/16/2018 and chest radiograph 09/15/18. FINDINGS: TUBES and LINES: None. LUNGS: Consolidative opacity in the left mid and lower lung zones. There are increased hilar and lower lung zone predominant patchy opacities in the right lung. There is perihilar fullness and indistinctness of the pulmonary vasculature. PLEURA: No pleural effusion or pneumothorax. HEART AND MEDIASTINUM: The cardiomediastinal silhouette is unremarkable. BONES AND SOFT TISSUES: No acute osseous lesion. Soft tissues are unremarkable. UPPER ABDOMEN: No free air under the diaphragm. IMPRESSION: Findings of left lower lobe pneumonia, as seen on CT from 09/16/2018. Increased right basilar opacities could represent pneumonia. Bilateral perihilar opacities, right greater than left which could represent mild pulmonary interstitial edema. Signed by: Dr. Carin Castro MD on 09/19/2018 3:01 PM
[2018-09-19] MEDS: ACETYLCYSTEINE 200 MG/ML 4ML VIAL INH SCH ×2 (15:30→21:00)
--- NOTE | 2018-09-19 16:16 | NUR ---
PATIENT SITTING AT BED SIDE WORKING ON THE LAPTOP, NO COMPLAIN VOICED. BED IN LOWER POSITION, CALL LIGHT AT REACH.
--- NOTE | 2018-09-19 19:15 | NUR ---
patient recieved awake, alert, lying quietly in bed. vss. no c/o pain noted. pm assessment complete. patient instructed to call for assistance when needed.
[2018-09-19] MEDS: DIPHENHYDRAMINE HCL 25 MG CAP PO SCH (20:12)
[2018-09-19] MEDS: ATORVASTATIN 20 MG TAB PO SCH (20:12)
[2018-09-19] MEDS: PRAZOSIN HCL 1 MG CAP PO SCH (20:12)
[2018-09-19] MEDS: INSULIN DETEMIR 100 UNIT/ML PEN SQ SCH (20:18)
[2018-09-19] MEDS: IBUPROFEN 200 MG TAB PO PRN (23:57)
--- NOTE | 2018-09-19 23:57 | NUR ---
patient medicated with motrin 400 mg po for temp 100.9 ax.
[2018-09-20] VITALS (8 sets, daily range): BP systolic 102–138; BP diastolic 51–73
--- NOTE | 2018-09-20 | NUR ---
patient medicated with phenergan/codeine 5 cc po for c/o cough.
[2018-09-20] MEDS: ALBUTEROL/IPRATROPIUM 3 ML NEB INH SCH ×6 (03:50→23:45)
[2018-09-20 05:32] LABS: BASOPHILS % 0.2 % (0.0-1.0); EOSINOPHILS # (AUTO) 0.2 (0.0-0.4); EOSINOPHILS % 1.5 % (0.0-6.0); HEMATOCRIT 26.7 % (34.2-44.1); HEMOGLOBIN 8.6 g/dL (12.0-16.0); LYMPHOCYTES # (AUTO) 1.3 (1.0-3.2); LYMPHOCYTES % 12.9 % (18.0-39.1); MEAN CORPUSCULAR HEMOGLOBIN 28.8 pg (28-32); MEAN CORPUSCULAR HGB CONC 32.2 g/dL (31-35); MEAN CORPUSCULAR VOLUME 89.3 fL (81-99); MONOCYTES # (AUTO) 0.4 (0.2-0.8); MONOCYTES % 4.4 % (4.4-11.3); NEUTROPHILS # (AUTO) 7.8 (2.1-6.9); NEUTROPHILS % 78.5 % (38.7-80.0); PLATELET COUNT 245 x10e3/uL (140-360); RED BLOOD COUNT 2.99 x10e6/uL (3.6-5.1); RED CELL DISTRIBUTION WIDTH 13.6 % (11.7-14.4)
[2018-09-20 05:56] LABS: ALANINE AMINOTRANSFERASE 10 IU/L (0-55); ALBUMIN/GLOBULIN RATIO 0.5 (0.8-2.0); ALKALINE PHOSPHATASE 72 IU/L (40-150); ANION GAP 13.2 mmol/L (8-16); BLOOD UREA NITROGEN 6 mg/dL (7-26); BUN/CREATININE RATIO 8 (6-25); CALCIUM 8.7 mg/dL (8.4-10.2); CARBON DIOXIDE 25 mmol/L (22-29); CHLORIDE 106 mmol/L (98-107); CREATININE, SERUM 0.77 mg/dL (0.57-1.11); EST GLOMERULAR FILTRATION RATE > 60 ML/MIN (60-); GLUCOSE 84 mg/dL (74-118); POTASSIUM 3.2 mmol/L (3.5-5.1); SODIUM 141 mmol/L (136-145)
[2018-09-20] MEDS: VANCOMYCIN 1GM/NS 250 ML 250 ML IV SCH (06:00)
[2018-09-20] MEDS: ACETYLCYSTEINE 200 MG/ML 4ML VIAL INH SCH ×2 (06:56→19:10)
--- NOTE | 2018-09-20 07:05 | NUR ---
PATIENT SITTING UP IN BED TALKING ON THE PHONE, NO RESPIRATORY DISTRESS OBSERVED. ALL PERSONAL ITEMS CLOSE TO PATIENT. CALL LIGHT AT REACH.
[2018-09-20 07:27] LABS: BAND NEUTROPHILS % (MANUAL) 4 %; LYMPHOCYTES % (MANUAL) 13 % (19-48); MONOCYTES % (MANUAL) 4 % (3.4-9.0); NEUTROPHILS % (MANUAL) 79 % (40-74); PLATELET ESTIMATE ADEQUATE; PLATELET MORPHOLOGY COMMENT NORMAL; RBC MORPHOLOGY COMMENT NORMAL
[2018-09-20] MEDS: INSULIN LISPRO 100 UNIT/1 ML 3ML VIAL SQ SCH ×4 (07:30→21:00)
[2018-09-20] MEDS ORDERED: FUROSEMIDE INJ 10 MG/ML 2 ML VIAL IV ONE (07:45)
[2018-09-20] MEDS: PANTOPRAZOLE SOD 40 MG TABEC PO SCH (08:12)
[2018-09-20] MEDS: LISINOPRIL 20 MG TAB PO SCH (09:00)
[2018-09-20] MEDS: MONTELUKAST SODIUM 10 MG TAB PO SCH (09:28)
[2018-09-20] MEDS: DULOXETINE HCL 20 MG DELAYED RELEASE PO SCH (09:28)
[2018-09-20] MEDS: CYCLOBENZAPRINE HCL 10 MG TAB PO SCH ×3 (09:28→21:25)
[2018-09-20] MEDS: METFORMIN HCL 500 MG TAB PO SCH ×2 (09:28→17:45)
[2018-09-20] MEDS: CLONAZEPAM 1 MG TAB PO SCH ×2 (09:28→18:09)
[2018-09-20] MEDS: PROMETHAZINE/CODEINE 5 ML UDC PO PRN ×3 (10:12→21:28)
[2018-09-20] MEDS ORDERED: POTASSIUM CHLORIDE 10MEQ EA PO NR ×2 (13:00→15:00)
--- NOTE | 2018-09-20 13:20 | NUR ---
SPOKE WITH PATIENT REGARDING ABNORMAL LAB RESULT, NEW ORDERS RECEIVED.
[2018-09-20] MEDS: CEFEPIME 2 GM/NS 0.9% 100 ML 100 ML IV SCH (15:05)
[2018-09-20] MEDS: IBUPROFEN 200 MG TAB PO PRN (15:06)
--- NOTE | 2018-09-20 17:40 | NUR ---
URINE SPECIMEN COLLECTED AND SENT TO THE LAB.
--- NOTE | 2018-09-20 18:03 | Diagnostic Imaging Report ---
Examination: Single AP view of the chest. COMPARISON: Chest two views 09/19/2018 INDICATION: PICC line placement IMPRESSION: 1. Lines and Tubes: Interval placement of right-sided PICC line, which has its distal tip projecting in the proximal to mid SVC. 2. Otherwise, no significant interval change. Signed by: Dr. Oli Gant M.D. on 09/20/2018 5:59 PM
--- NOTE | 2018-09-20 19:21 | NUR ---
Patient sitting in bed. AAO x 4. Patient had no c/o pain. No signs of respiratory distress. Bed locked and in lowest position. Bed rails up x 2. Patient instructed to call for assistance when needed. Call light within reach.
[2018-09-20] MEDS: INSULIN DETEMIR 100 UNIT/ML PEN SQ SCH (21:00)
[2018-09-20] MEDS: ATORVASTATIN 20 MG TAB PO SCH (21:25)
[2018-09-20] MEDS: PRAZOSIN HCL 1 MG CAP PO SCH (21:25)
[2018-09-20] MEDS: DIPHENHYDRAMINE HCL 25 MG CAP PO SCH (21:25)
[2018-09-21] VITALS (8 sets, daily range): BP systolic 119–134; BP diastolic 58–86
--- NOTE | 2018-09-21 01:18 | NUR ---
Stool specimen sent to lab for analysis.
[2018-09-21] MEDS: CEFEPIME 2 GM/NS 0.9% 100 ML 100 ML IV SCH ×2 (01:30→13:05)
[2018-09-21] MEDS: ALBUTEROL/IPRATROPIUM 3 ML NEB INH SCH ×6 (03:33→23:11)
[2018-09-21] MEDS: PROMETHAZINE/CODEINE 5 ML UDC PO PRN ×2 (05:22→16:55)
[2018-09-21 05:43] LABS: BASOPHILS % 0.2 % (0.0-1.0); EOSINOPHILS # (AUTO) 0.1 (0.0-0.4); EOSINOPHILS % 1.3 % (0.0-6.0); HEMOGLOBIN 8.7 g/dL (12.0-16.0); LYMPHOCYTES % 11.3 % (18.0-39.1); MEAN CORPUSCULAR HGB CONC 32.2 g/dL (31-35); MONOCYTES # (AUTO) 0.4 (0.2-0.8); MONOCYTES % 4.3 % (4.4-11.3); NEUTROPHILS # (AUTO) 6.8 (2.1-6.9); NEUTROPHILS % 81.1 % (38.7-80.0); PLATELET COUNT 261 x10e3/uL (140-360); RED CELL DISTRIBUTION WIDTH 13.4 % (11.7-14.4)
[2018-09-21 06:09] LABS: ALANINE AMINOTRANSFERASE 12 IU/L (0-55); ALBUMIN 2.2 g/dL (3.5-5.0); ALBUMIN/GLOBULIN RATIO 0.6 (0.8-2.0); ALKALINE PHOSPHATASE 68 IU/L (40-150); ANION GAP 12.5 mmol/L (8-16); BLOOD UREA NITROGEN 8 mg/dL (7-26); BUN/CREATININE RATIO 10 (6-25); CALCIUM 8.6 mg/dL (8.4-10.2); CARBON DIOXIDE 26 mmol/L (22-29); CHLORIDE 102 mmol/L (98-107); CREATININE, SERUM 0.82 mg/dL (0.57-1.11); EST GLOMERULAR FILTRATION RATE > 60 ML/MIN (60-); GLUCOSE 153 mg/dL (74-118); POTASSIUM 3.5 mmol/L (3.5-5.1); SODIUM 137 mmol/L (136-145)
--- NOTE | 2018-09-21 06:10 | Operative Report ---
DATE OF PROCEDURE: September 18, 2018 PROCEDURE PERFORMED: Bronchoscopy with BAL. PREOPERATIVE DIAGNOSIS: Left lower lobe pneumonia and influenza. POSTOPERATIVE DIAGNOSES 1. Thick mucus in the trachea. 2. Left lower lobe thin and tenacious mucus. 3. Mucoid area and mucous plug on the natanael, which was thick and forceps needed to remove it. PROCEDURE IN DETAIL: Bronchoscope was advanced through the oral cavity. Thick tenacious secretions were seen all along the trachea. There was thick mucous plug versus a mucoid area that was stuck on the natanael, which I was unable to wash with saline. Forceps was used to remove that, and that piece was sent for pathology. Left lower lobe BAL was done. Right lung was examined to the segmental level. Right upper lobe, lower lobe and middle lobe were examined. No endobronchial lesion was seen. COMPLICATIONS: None. Job#: [id number] DC
[2018-09-21] MEDS: ACETYLCYSTEINE 200 MG/ML 4ML VIAL INH SCH ×3 (06:50→23:11)
--- NOTE | 2018-09-21 07:22 | NUR ---
Patient resting comfortably. Shift report given to oncoming nurse.
[2018-09-21] MEDS: INSULIN LISPRO 100 UNIT/1 ML 3ML VIAL SQ SCH ×4 (08:45→20:30)
[2018-09-21] MEDS ORDERED: CLONAZEPAM 1 MG TAB PO SCH (09:00)
[2018-09-21] MEDS: METFORMIN HCL 500 MG TAB PO SCH ×2 (09:25→16:56)
[2018-09-21] MEDS: DULOXETINE HCL 20 MG DELAYED RELEASE PO SCH (09:25)
[2018-09-21] MEDS: PANTOPRAZOLE SOD 40 MG TABEC PO SCH (09:25)
[2018-09-21] MEDS: LISINOPRIL 20 MG TAB PO SCH (09:25)
[2018-09-21] MEDS: CLONAZEPAM 1 MG TAB PO SCH ×2 (09:26→16:56)
[2018-09-21] MEDS: MONTELUKAST SODIUM 10 MG TAB PO SCH (09:26)
[2018-09-21] MEDS: CYCLOBENZAPRINE HCL 10 MG TAB PO SCH ×3 (09:26→20:45)
[2018-09-21] MEDS: IBUPROFEN 200 MG TAB PO PRN ×2 (09:38→23:08)
--- NOTE | 2018-09-21 10:00 | NUR ---
PT MEDICATED WITH MOTRIN 400MG PO FOR A LOW GRADE FEVER 99.9 WITH GOOD EFFECT
[2018-09-21] MEDS ORDERED: VANCOMYCIN 1GM/NS 250 ML 250 ML IV SCH (10:30)
[2018-09-21] MEDS: VANCOMYCIN 1GM/NS 250 ML 250 ML IV SCH (14:10)
[2018-09-21 18:42] LABS: FREE THYROXINE INDEX 2.3584 (1.4-3.8); THYROID STIMULATING HORMONE 1.5 uIU/mL (0.350-4.940)
--- NOTE | 2018-09-21 19:12 | NUR ---
PT IN BED, NO DISTRESS NOTED
--- NOTE | 2018-09-21 19:19 | NUR ---
Patient received lying in bed. AAO x 4. No acute distress noted. Call light within reach.
[2018-09-21] MEDS: ATORVASTATIN 20 MG TAB PO SCH (20:45)
[2018-09-21] MEDS: PRAZOSIN HCL 1 MG CAP PO SCH (20:45)
[2018-09-21] MEDS: DIPHENHYDRAMINE HCL 25 MG CAP PO SCH (20:45)
[2018-09-21] MEDS: INSULIN DETEMIR 100 UNIT/ML PEN SQ SCH (21:00)
[2018-09-22] VITALS: BP 124/57
[2018-09-22] MEDS: CEFEPIME 2 GM/NS 0.9% 100 ML 100 ML IV SCH (01:30)
[2018-09-22] MEDS: VANCOMYCIN 1GM/NS 250 ML 250 ML IV SCH (02:00)
[2018-09-22] MEDS: ALBUTEROL/IPRATROPIUM 3 ML NEB INH SCH ×3 (03:20→11:00)
[2018-09-22 04:00] VITALS: BP 129/81
--- NOTE | 2018-09-22 07:18 | NUR ---
Shift report given to oncoming nurse. Patient in stable condition.
[2018-09-22 07:52] VITALS: BP 108/57
[2018-09-22 08:40] VITALS: BP 108/57
[2018-09-22] MEDS: INSULIN LISPRO 100 UNIT/1 ML 3ML VIAL SQ SCH (08:40)
[2018-09-22] MEDS: CLONAZEPAM 1 MG TAB PO SCH (08:41)
[2018-09-22] MEDS: DULOXETINE HCL 20 MG DELAYED RELEASE PO SCH (08:41)
[2018-09-22] MEDS: PANTOPRAZOLE SOD 40 MG TABEC PO SCH (08:41)
[2018-09-22] MEDS: CYCLOBENZAPRINE HCL 10 MG TAB PO SCH (08:41)
[2018-09-22] MEDS: METFORMIN HCL 500 MG TAB PO SCH (08:41)
[2018-09-22] MEDS: MONTELUKAST SODIUM 10 MG TAB PO SCH (08:42)
[2018-09-22] MEDS: LISINOPRIL 20 MG TAB PO SCH (08:42)
--- NOTE | 2018-09-22 10:06 | NUR ---
SENSITIVITY BACK FROM [facility]ASH[facility] CM SPOKE WITH DR BUKR AND REMINDED HIM TO ORDER NEBULIZER AND NEB MEDS FOR PT PRIOR TO DC
[2018-09-22] MEDS ORDERED: PROMETHAZINE/CODEINE 5 ML UDC PO PRN (10:15)
[2018-09-22] MEDS ORDERED: LEVAQUIN500 MG PO (11:20)
[2018-09-22 11:37] VITALS: BP 130/72
--- NOTE | 2018-09-22 11:47 | NUR ---
Discharge instructions and prescriptions given to the patient, she verbalized understanding. IV to the right FA removed and PICC line to RUE removed with tip intact, dressings applied to site.
--- NOTE | 2018-09-22 13:30 | NUR ---
patient left the floor via wheelchair , she is discharged home.
[2018-09-22] MEDS ORDERED: CEFAZOLIN SOD 1 GM/D5W 50ML 50 ML IV SCH (14:00)
--- NOTE | 2018-09-29 23:49 | Consultation ---
DATE OF CONSULTATION: September 17, 2018 CONSULTATION TO: Dr. Shayne Stinson HISTORY: Reva Almazan is a 48-year-old white female who has been referred to me for evaluation of anemia. No history of hematochezia, melena, hematuria, hematemesis, hemoptysis. The patient had presented with shortness of breath. Subsequently was found to have influenza. The patient also was found to have left lower lobe pneumonia. Subsequently has been on aggressive antibiotic therapy. The patient's hemoglobin dropped from 9.3 g which was a baseline on September 13 to 7.8, subsequently referred to me for further evaluation and treatment. SOCIAL HISTORY: Noncontributory. FAMILY HISTORY: Noncontributory. ALLERGIES: REPORTED CLINDAMYCIN, TYLENOL, PENICILLINS, SUMATRIPTAN. MEDICATIONS AT THIS TIME: 1. Albuterol. 2. Levaquin. 3. Vancomycin. 4. Sodium chloride. 5. Ibuprofen. 6. Lipitor. 7. Prazosin. 8. Clonazepam. 9. Insulin. 10. Protonix. 11. Metformin. 12. Cymbalta. 13. Montelukast. 14. Guaifenesin. 15. Cyclobenzaprine. 16. Lisinopril. 17. Diphenhydramine. 18. Promethazine. 19. Dextrose. REVIEW OF SYSTEMS: HEENT: Normal. CARDIAC: History of hyperlipidemia, history of hypertension. RESPIRATORY: At the present time influenza and also bronchopneumonia. GI: Normal. : Normal. MUSCULOSKELETAL: History of being treated for rheumatoid arthritis with biologics by back end architect. SKIN AND BREASTS: Normal. NEUROENDOCRINE: History of diabetes mellitus. PHYSICAL EXAMINATION: GENERAL: A markedly obese female. HEENT: No palpable adenopathy. HEART: Within normal limits. LUNGS: Coarse crepitations. BREASTS: Deferred at request. ABDOMEN: Soft. RECTAL: Deferred at request. VAGINAL: Deferred at request. CENTRAL NERVOUS SYSTEM: Essentially normal. EXTREMITIES: Essentially normal. LABS: On September 13 showed a hemoglobin of 9.3, hematocrit of 28.4, white count of 8100, platelets 182,000. Sodium 130, potassium 3.3, chloride is 99, CO2 19, BUN 14, creatinine 0.8, glucose 189. Bilirubin 0.4, SGOT 11, SGPT 8, alkaline phosphatase 57. INR 1.01. Blood cultures reported positive for Staph, coagulase negative. Chest x-ray shows left lower lobe bronchopneumonia. At the time of the consultation 5 days later, the hemoglobin dropped down to 7.8, but patient still maintains the normal indices. IMPRESSION: 1. Anemia of chronic disease. 2. Marked shift to the left with neutrophilia. 3. Hypokalemia of 3.2. 4. Hypoalbuminemia. 5. Hyperglobulinemia. 6. Left lower lobe bronchopneumonia. 7. Pleural effusion. 8. Blood culture is positive for Staph, coagulase negative. 9. Diabetes mellitus. 10. Status post cholecystectomy. 11. Flu syndrome. 12. History of rheumatoid arthritis. PLAN, COMMENTS, AND SUGGESTIONS: The normal indices, lack of hemolysis because of normal reticulocyte count suggests that the patient did have anemia of chronic disease. Therefore, main causes of anemia of chronic disease consisting of rheumatoid arthritis, hypothyroidism, chronic renal failure and an underlying malignancy at least during this hospitalization. There seems to be no underlying malignancy. I do suggest the patient to have a TSH. I will confine myself to hematology. I will be more than happy to follow this patient as outpatient if the attending would call and make an appointment. Thank you. Job#: [id number] cc:DO ALEXANDER ALANIS MD
== END 2018-09-22 13:30 | disposition home or self-care (01) | DRG 871 ==
LOC: ER 14:05 → ERHOLD 16:40 → MED/SURG3 22:00
PROC: 30243N1 Transfusion of Nonautologous Red Blood Cells into Central Vein, Percutaneous Approach (ICD-10-PCS; 2018-09-17)
PROC: 0BD28ZX Extraction of Carina, Via Natural or Artificial Opening Endoscopic, Diagnostic (ICD-10-PCS; 2018-09-18)
PROC: 0B9J8ZX Drainage of Left Lower Lung Lobe, Via Natural or Artificial Opening Endoscopic, Diagnostic (ICD-10-PCS; 2018-09-18)
PROC: 02HV33Z Insertion of Infusion Device into Superior Vena Cava, Percutaneous Approach (ICD-10-PCS; principal; 2018-09-20)
DX: A41.9 Sepsis, unspecified organism (principal); J10.08 Influenza due to other identified influenza virus with other specified pneumonia; Z68.43 Body mass index [BMI] 50.0-59.9, adult; N39.0 Urinary tract infection, site not specified; D63.8 Anemia in other chronic diseases classified elsewhere; E87.6 Hypokalemia; E88.09 Other disorders of plasma-protein metabolism, not elsewhere classified; E11.9 Type 2 diabetes mellitus without complications; M06.9 Rheumatoid arthritis, unspecified; E66.01 Morbid (severe) obesity due to excess calories; Z79.4 Long term (current) use of insulin
CPT/HCPCS: 36415; 36569; 71045; 71046; 71250; 74470; 76604; 80048; 80053; 80202; 81001; 82270; 82550; 82553; 82948; 83518; 83880; 84132; 84436; 84443; 84479; 84484; 85025; 85045; 85610; 85730; 86850; 86900; 86920; 87040; 87070; 87071; 87086; 87102; 87109; 87186; 87205; 87206; 87335; 87400; 88305; 94640; 96361; 99284; J1885; J1940; J2001; J2250; J3370; J7030; J7050; P9016

== ENCOUNTER 2019-10-18 11:42 | Emergency (ER) | payer OTHER ==
[~2019-10-18] VITALS: Ht 162.6 cm; Wt 151.5 kg
[~2019-10-18 11:42] MED LIST: ATORVASTATIN CA20 MG PO; BENADRYL25 M1 PO; CLONAZEPAM1 MG PO; CYCLOBENZAPRINE10 MG PO; CYMBALTA20 MG PO; LANTUS 3ML100 UNITS/ SC; LEVAQUIN500 MG PO; LISINOPRIL10 MG PO; METFORMIN HCL500 MG PO; MOBIC15 MG PO; OMEPRAZOLE40 MG PO; PRAZOSIN HCL1 MG PO; SINGULAIR10 MG PO; SPIRONOLACTONE50 MG PO
[2019-10-18] MEDS ORDERED: SODIUM CHLORIDE 0.9% 1000ML 1,000 ML IV STA (11:59)
[2019-10-18] MEDS ORDERED: METOCLOPRAMIDE HCL 10 MG/2ML VIAL IV ONE (12:00)
[2019-10-18 12:07] LABS: BASOPHILS % 0.7 % (0.0-1.0); EOSINOPHILS % 0.3 % (0.0-6.0); HEMATOCRIT 37.5 % (34.2-44.1); HEMOGLOBIN 12.2 g/dL (12.0-16.0); LYMPHOCYTES # (AUTO) 1.3 (1.0-3.2); LYMPHOCYTES % 22.1 % (18.0-39.1); MEAN CORPUSCULAR HEMOGLOBIN 30.3 pg (28-32); MEAN CORPUSCULAR HGB CONC 32.5 g/dL (31-35); MEAN CORPUSCULAR VOLUME 93.3 fL (81-99); MONOCYTES # (AUTO) 0.6 (0.2-0.8); MONOCYTES % 9.5 % (4.4-11.3); NEUTROPHILS # (AUTO) 4.1 (2.1-6.9); NEUTROPHILS % 67.2 % (38.7-80.0); PLATELET COUNT 333 x10e3/uL (140-360); RED BLOOD COUNT 4.02 x10e6/uL (3.6-5.1); RED CELL DISTRIBUTION WIDTH 13.3 % (11.7-14.4)
[2019-10-18 12:16] LABS: CLARITY,URINE HAZY (CLEAR); COLOR,URINE YELLOW (YELLOW)
[2019-10-18 12:17] LABS: BILIRUBIN,URINE SMALL (NEGATIVE); KETONES,URINE NEGATIVE (NEGATIVE); LEUKOCYTE ESTERASE ,URINE NEGATIVE (NEGATIVE); NITRITE,URINE NEGATIVE (NEGATIVE); PROTEIN,URINE DIPSTICK 2+ (NEGATIVE); URINE UROBILINOGEN 0.2 mg/dL (0.2 - 1)
[2019-10-18 12:18] LABS: BACTERIA,URINE RARE /HPF; EPITHELIAL CELLS,URINE FEW /LPF; WBC,URINE (MAN) 0-5 /HPF (0-5)
[2019-10-18 12:28] LABS: ALBUMIN 4.6 g/dL (3.5-5.0); ALBUMIN/GLOBULIN RATIO 1.4 (0.8-2.0); ANION GAP 15.7 mmol/L (8-16); CALCIUM 9.6 mg/dL (8.4-10.2); CREATININE, SERUM 1.18 mg/dL (0.57-1.11); POTASSIUM 3.7 mmol/L (3.5-5.1)
[2019-10-18 13:47] VITALS: BP 180/85
== END 2019-10-18 13:30 | disposition home or self-care (01) ==
LOC: ER 11:42
DX: R11.2 Nausea with vomiting, unspecified (principal); I10 Essential (primary) hypertension; E11.9 Type 2 diabetes mellitus without complications; J45.909 Unspecified asthma, uncomplicated; M06.9 Rheumatoid arthritis, unspecified; M79.7 Fibromyalgia
CPT/HCPCS: 36415; 80053; 81001; 85025; 99284; J2765; J7030